=== PATIENT | male | born 1960 | race African-American/Black ===

== ENCOUNTER 2017-03-21 06:52 | Emergency (ER) | payer OTHER ==
[2017-03-21] MEDS: CEFTRIAXONE 250 MG INJ IM (08:44)
[2017-03-21] MEDS: AZITHROMYCIN 250 MG TAB PO (08:45)
== END 2017-03-21 12:23 | disposition home or self-care (01) ==
LOC: FTE 06:52
DX: N34.2 Other urethritis (principal); I82.401 Acute embolism and thrombosis of unspecified deep veins of right lower extremity; I10 Essential (primary) hypertension; F17.210 Nicotine dependence, cigarettes, uncomplicated; Z79.01 Long term (current) use of anticoagulants
CPT/HCPCS: 93970; 96372; 99285-25